=== PATIENT | female | born 1980 ===

== ENCOUNTER 2018-02-18 06:09 | Emergency (ER) | payer OTHER ==
[~2018-02-18] VITALS: Ht 177.8 cm; Wt 75.7 kg
[2018-02-18] MEDS ORDERED: TRAM1TAB98 (06:30)
[2018-02-18] MEDS ORDERED: TANDEM PLUS CA1 EACH (06:30)
== END 2018-02-18 16:16 | disposition home or self-care (01) ==
LOC: ER 06:09
DX: K29.60 Other gastritis without bleeding (principal)

== ENCOUNTER 2018-10-27 11:45 | Inpatient (IN) | payer OTHER ==
[~2018-10-27] VITALS: Ht 177.8 cm; Wt 90.7 kg
[~2018-10-27 11:45] MED LIST: TANDEM PLUS CA1 EACH; TRAM1TAB98
[2018-11-03] MEDS ORDERED: PROFERRIN-FORT1 EACH PO (21:32)
[2018-11-03] MEDS ORDERED: OBSTETRIX DHA1 EACH PO (21:37)
[2018-11-06] MEDS ORDERED: Tylenol #3 PO (08:22)
== END 2018-11-06 13:15 | disposition home or self-care (01) | DRG 807 ==
LOC: O/R 11:45 → SURG-SUITE 11-03 17:41 → LDR 11-03 17:41 → SURG-SUITE 11-04 12:25 → OB/GYN 11-07 14:00
PROVIDERS: ADMIT Obstetrics & Gynecology
PROC: 10E0XZZ Delivery of Products of Conception, External Approach (ICD-10-PCS; principal; 2018-11-03)
PROC: 0KQM0ZZ Repair Perineum Muscle, Open Approach (ICD-10-PCS; 2018-11-03)
PROC: 3E0P7VZ Introduction of Hormone into Female Reproductive, Via Natural or Artificial Opening (ICD-10-PCS; 2018-11-03)
PROC: 3E033VJ Introduction of Other Hormone into Peripheral Vein, Percutaneous Approach (ICD-10-PCS; 2018-11-03)
PROC: 10907ZC Drainage of Amniotic Fluid, Therapeutic from Products of Conception, Via Natural or Artificial Opening (ICD-10-PCS; 2018-11-03)
PROC: 4A1HXCZ Monitoring of Products of Conception, Cardiac Rate, External Approach (ICD-10-PCS; 2018-11-03)
DX: O70.1 Second degree perineal laceration during delivery (principal); Z37.0 Single live birth; Z3A.39 39 weeks gestation of pregnancy

== ENCOUNTER 2022-03-17 03:43 | Emergency (ER) | payer OTHER ==
[~2022-03-17] VITALS: Ht 177.8 cm; Wt 78.9 kg
[~2022-03-17 03:43] MED LIST changes: +OBSTETRIX DHA1 EACH PO; +PROFERRIN-FORT1 EACH PO; +Tylenol #3 PO
[2022-03-17] MEDS ORDERED: TRAMADOL HCL50 MG PO (07:26)
[2022-03-17] MEDS ORDERED: ORPHENADRINE C100 MG PO (07:26)
== END 2022-03-17 07:32 ==
LOC: ER 03:43
DX: M62.838 Other muscle spasm (principal); Z88.6 Allergy status to analgesic agent; Z88.0 Allergy status to penicillin

== ENCOUNTER 2022-10-13 09:48 | Emergency (ER) | payer OTHER ==
[~2022-10-13] VITALS: Ht 177.8 cm; Wt 79.8 kg
[~2022-10-13 09:48] MED LIST changes: +ORPHENADRINE C100 MG PO; +TRAMADOL HCL50 MG PO
== END 2022-10-13 12:26 | disposition home or self-care (01) ==
LOC: ER 09:48
DX: K21.9 Gastro-esophageal reflux disease without esophagitis (principal); Z88.6 Allergy status to analgesic agent; Z88.0 Allergy status to penicillin